=== PATIENT | female | born 1970 | race African-American/Black ===

== ENCOUNTER 2016-05-18 22:52 | Emergency (ER) | payer SELFPAY | END 2016-05-18 23:59 | disposition home or self-care (01) | LOC: D.ER 22:52 | DX: T21.21XA Burn of second degree of chest wall, initial encounter (principal); T25.121A Burn of first degree of right foot, initial encounter; X12.XXXA Contact with other hot fluids, initial encounter; Y93.89 Activity, other specified; Y92.89 Other specified places as the place of occurrence of the external cause; F17.200 Nicotine dependence, unspecified, uncomplicated ==

== ENCOUNTER 2016-06-16 14:32 | Emergency (ER) | payer SELFPAY | END 2016-06-16 18:27 | disposition left against medical advice (07) | LOC: D.ER 14:32 | DX: Z02.9 Encounter for administrative examinations, unspecified (principal) ==

== ENCOUNTER 2016-10-20 07:24 | Emergency (ER) | payer SELFPAY | END 2016-10-20 08:08 | disposition home or self-care (01) | LOC: D.ER 07:24 | DX: B34.9 Viral infection, unspecified (principal); N64.4 Mastodynia; F17.200 Nicotine dependence, unspecified, uncomplicated ==